=== PATIENT | female | born 1980 | race Two or more races ===

== ENCOUNTER 2017-02-05 11:30 | Emergency (ER) | payer MEDICAID ==
[~2017-02-05] VITALS: Ht 165.1 cm; Wt 54.4 kg
[2017-02-05 11:46] VITALS: BP 150/88
[2017-02-05 12:22] LABS: Basophils # (auto) 0.1 uL; Basophils % (auto) 1.2 % (0.0-2.0); CONDITION Y; Eosinophils # (auto) 0.1 uL; Eosinophils % (auto) 1.5 % (0.0-7.0); Hematocrit 38.6 % (36.0-46.0); Hemoglobin 13.2 g/dL (12.2-16.2); Lymphocytes # (auto) 1.6 uL; Lymphocytes % (auto) 22.5 % (10.0-50.0); Mean Corpuscular Hemoglobin 32.3 pg (28.0-32.0); Mean Corpuscular Hgb Conc. 34.3 g/dL (32.0-36.0); Mean Platelet Volume 8.8 fL (7.4-10.4); Monocytes # (auto) 0.6 uL; Monocytes % (auto) 7.8 % (0.0-12.0); Neutrophils # (auto) 4.8 uL; Platelet Count (auto) 382 10^3/uL (140-450); White Blood Cell 7.2 10^3/uL (4.4-10.8)
[2017-02-05 12:54] LABS: Albumin 4.1 g/dL (3.4-5.0); Bilirubin, Total 1.6 mg/dL (0.2-1.0); Calcium 8.8 mg/dL (8.5-10.1); Potassium 3.2 mmol/L (3.5-5.1); Total Protein 7.7 g/dL (6.4-8.2)
[2017-02-05] MEDS ORDERED: POTASSIUM CHL 20 Meq TABLET PO ONE (13:00)
== END 2017-02-05 13:10 | disposition home or self-care (01) ==
LOC: ER 11:30
DX: J20.9 Acute bronchitis, unspecified (principal); F41.9 Anxiety disorder, unspecified; F17.200 Nicotine dependence, unspecified, uncomplicated; F12.10 Cannabis abuse, uncomplicated
CPT/HCPCS: 36415; 80053; 85025; 93005

== ENCOUNTER 2017-06-16 11:19 | Emergency (ER) | payer MEDICAID | END 2017-06-16 12:17 | disposition left against medical advice (07) | LOC: ER 11:19 | DX: R51 Headache (principal); Z53.21 Procedure and treatment not carried out due to patient leaving prior to being seen by health care provider ==

== ENCOUNTER 2017-12-21 12:34 | Emergency (ER) | payer MEDICAID ==
[~2017-12-21] VITALS: Ht 165.1 cm; Wt 58.1 kg
[2017-12-21 12:51] VITALS: BP 141/96
== END 2017-12-21 14:01 | disposition home or self-care (01) ==
LOC: ER 12:34
DX: R51 Headache (principal); F17.210 Nicotine dependence, cigarettes, uncomplicated; J45.909 Unspecified asthma, uncomplicated; F41.9 Anxiety disorder, unspecified